=== PATIENT | male | born 1985 | race African-American/Black ===

== ENCOUNTER 2018-02-06 21:56 | Emergency (ER) | payer SELFPAY ==
[2018-02-06 22:19] VITALS: BP 183/89; PULSE 83; RESP 17; TEMP 98.6; O2SAT 97
[2018-02-06 23:12] VITALS: BP 136/74; TEMP 98.5
[2018-02-06] MEDS ORDERED: DOXY100C PO (23:54)
[2018-02-06] MEDS ORDERED: BACT800T5 PO (23:54)
--- NOTE | 2018-02-06 23:59 | PD ---
HPI Chief Complaint: ENT Complaint Time Seen by Provider: 23:48 Travel History International Travel<30 days: No Contact w/Intl Traveler<30days: No Traveled to known affect area: No History of Present Illness HPI 32-year-old black male presents emergency department with complaints of right earlobe swelling over the last few days. He states that he has had an abscess on his ear in the past requiring incision and drainage in the past. He states that this feels the same. He has noted a small amount of drainage. Pain is mild. No fever chills. No runny nose, cough or congestion. No alleviating or exacerbating activity. PFSH Past Medical History Narrative Medical Right ear abscess Immunizations Current: Yes Tetanus Vaccination: Unknown Influenza Vaccination: No Social History Alcohol Use: No Tobacco Use: No Substance Use: No Allergies-Medications (Allergen,Severity, Reaction): Coded Allergies: No Known Allergies (Unverified , 02/06/18) Reported Meds & Prescriptions Reported Meds & Active Scripts Active Doxycycline Hyclate 100 Mg Cap 100 Mg PO BID Bactrim DS (Sulfamethoxazole-Trimethoprim) 800-160 Mg Tab 1 Tab PO BID Review of Systems General / Constitutional: No: Fever Eyes: No: Visual changes HENT: Positive: Ear Discharge, Earache, No: Headaches, Sore Throat, Congestion Cardiovascular: No: Chest Pain or Discomfort Respiratory: No: Shortness of Breath Gastrointestinal: No: Abdominal Pain Genitourinary: No: Dysuria Musculoskeletal: No: Pain Skin: No Rash Neurologic: No: Weakness Psychiatric: No: Depression Endocrine: No: Polydipsia Hematologic/Lymphatic: No: Easy Bruising Physical Exam Narrative GENERAL: Well-developed, well-nourished in no acute distress. Nontoxic appearing. HEAD: Normocephalic, atraumatic. EYES: Pupils equal round and reactive. Extraocular motions intact. No scleral icterus. No injection or drainage. ENT: TMs clear without erythema. The external auditory canals clear. The patient has a cyst on the right earlobe which is open and draining. Mild tenderness. No fluctuance or pointing. Evidence of prior incision and drainage. Nose: clear . Posterior pharynx is pink and moist. No tonsillar edema or exudate. Uvula midline. Airway patent. NECK: Trachea midline.Supple, nontender, moves head freely. No central bony tenderness or spasm. CARDIOVASCULAR: Regular rate and rhythm without murmurs, gallops, or rubs. RESPIRATORY: Clear to auscultation. Breath sounds equal bilaterally. No wheezes , rales, or rhonchi. GASTROINTESTINAL: Abdomen soft, non-tender, nondistended. No hepato-splenomegaly , or palpable masses. No guarding. EXTREMITIES: No clubbing, cyanosis, or edema. No joint tenderness, effusion, or edema noted. BACK: Nontender without deformity or crepitance. No flank tenderness. Data Data Last Documented VS Vital Signs Date Time Temp Pulse Resp B/P (MAP) Pulse Ox O2 Delivery O2 Flow Rate FiO2 02/06/18 23:12 98.5 136/74 (94) 02/06/18 22:19 83 17 97 Orders Orders Doxycycline (Vibramycin) (02/07/18 00:00) Sulfamet-Trimeth Ds 800-160 Mg (Bactrim (02/07/18 00:00) Ed Discharge Order (02/06/18 23:55) MDM Medical Decision Making Medical Screen Exam Complete: Yes Emergency Medical Condition: Yes Medical Record Reviewed: Yes Differential Diagnosis MDM: High Differential diagnoses: Abscess, folliculitis, cellulitis, lymphangitis, abrasion, contact dermatitis Narrative Course Patient is given Bactrim DS and doxycycline 100 mg p.o. Patient has a Cyst of the right earlobe. Diagnosis Primary Impression: Right earlobe cyst Patient Instructions: General Instructions Additional Instructions: Rest. Elevation. keep clean and dry. Warm compresses. Daily wound care with soap, water and Neosporin. Three Advil every 6 hours. Doxycycline, Septra DS. Follow-up with a primary care doctor in one week. Return to the ER for any problems. Med/Other Pt SpecificInfo: Prescription(s) given Scripts Doxycycline Hyclate (Doxycycline Hyclate) 100 Mg Cap 100 MG PO BID for Infection, #20 CAP 0 Refills Prov: Clement Wright MD 02/06/18 Sulfamethoxazole-Trimethoprim (Bactrim DS) 800-160 Mg Tab 1 TAB PO BID for Infection, #20 TAB 0 Refills Prov: Clement Wright MD 02/06/18 Disposition: 01 DISCHARGE HOME Condition: Stable John Guzman Feb 06, 2018 23:59
[2018-02-07] MEDS ORDERED: SULFAMETHOXAZOLE-TRIMETHOPRIM DS 800-160 MG TAB PO ONE
[2018-02-07] MEDS ORDERED: DOXYCYCLINE HYCLATE 100 MG CAP PO ONE
== END 2018-02-07 00:23 | disposition home or self-care (01) ==
LOC: NEPD 21:56
DX: Q18.1 Preauricular sinus and cyst (principal)
CPT/HCPCS: 99283